=== PATIENT | female | born 1970 | race Two or more races ===

== ENCOUNTER 2022-03-27 11:45 | Inpatient (IN) | payer MEDICAID ==
[~2022-03-27] VITALS: Ht 162.6 cm; Wt 101.3 kg
[2022-03-27 12:25] LABS: Basophils # (auto) 0.1 10 ^3/uL (0-0.2); Basophils % (auto) 0.6 % (0.0-2.0); Eosinophils # (auto) 0.1 10 ^3/uL (0-0.8); Eosinophils % (auto) 1.2 % (0.0-7.0); Hematocrit 43.9 % (36.0-46.0); Hemoglobin 14.2 g/dL (12.2-16.2); Lymphocytes # (auto) 1.1 10 ^3/uL (0.4-5.4); Lymphocytes % (auto) 11.7 % (10.0-50.0); Mean Corpuscular Hgb Conc. 32.4 g/dL (32.0-36.0); Mean Corpuscular Volume 83.4 fL (80.0-100.0); Monocytes # (auto) 0.8 10 ^3/uL (0-1.3); Monocytes % (auto) 8.9 % (0.0-12.0); Neutrophils # (auto) 7.1 10 ^3/uL (1.6-8.6); Neutrophils % (auto) 77.6 % (37.0-80.0); Red Blood Cells 5.26 10^6/uL (4.0-5.20); Red Cell Distribution Width 13.9 % (11.8-14.3); White Blood Cell 9.1 10^3/uL (4.4-10.8)
[2022-03-27 12:48] LABS: Albumin 3.6 g/dL (3.4-5.0); Calcium 8.4 mg/dL (8.5-10.1); Potassium 3.6 mmol/L (3.5-5.1)
[2022-03-27 12:51] LABS: BUN/Creatinine Ratio 14.3; Bilirubin, Total 0.4 mg/dL (0.2-1.0)
[2022-03-27] MEDS ORDERED: IPRATROPIUM BROM 0.5 MG/2.5ML INH SOL HHN ONE (14:00)
[2022-03-27] MEDS ORDERED: ALBUTEROL SULF 2.5 MG/0.5ML(0.5%) NEB SOLN HHN ONE (14:00)
[2022-03-27] MEDS ORDERED: methylPREDNISolone SOD SUCC 125 MG/2 ML VL IM ONE (14:00)
[2022-03-27] MEDS ORDERED: ONDANSETRON HCL 4 MG/2 ML VIAL IV PRN (18:45)
[2022-03-27] MEDS: SODIUM CHLORIDE 0.9% 1,000 ML IV SCH (18:45)
[2022-03-27] MEDS ORDERED: DEXTROSE (50%) 50ML SYRG IV PRN (18:45)
[2022-03-27] MEDS: IPRATROPIUM BROM 0.5 MG/2.5ML INH SOL NEB PRN (20:58)
[2022-03-27] MEDS: ALBUTEROL SULF 2.5 MG/0.5ML(0.5%) NEB SOLN NEB PRN (20:58)
[2022-03-27 22:00] VITALS: BP 132/60
[2022-03-27] MEDS: OSELTAMIVIR 75 MG CAP PO SCH (22:00)
[2022-03-27 23:01] VITALS: BP 117/56
[2022-03-27 23:02] VITALS: BP 117/56
[2022-03-27] MEDS: methylPREDNISolone SOD SUCC 125 MG/2 ML VL IV SCH (23:04)
[2022-03-27] MEDS: ENOXAPARIN SOD 100 MG/1 ML SYRINGE SC SCH (23:05)
[2022-03-27] MEDS: ACCU-CHEK COMFORT CURVE STRIP VI SCH (23:05)
[2022-03-27] MEDS: InsuLIN REG 1unit/0.01ml Soln (100units/ml) SC SCH (23:34)
[2022-03-28] MEDS ORDERED: SEMA4INJ SC (02:09)
[2022-03-28] MEDS ORDERED: LOS25T PO (02:09)
[2022-03-28] MEDS ORDERED: MAGN241.6 PO (02:09)
[2022-03-28 05:00] VITALS: BP 126/72
[2022-03-28] MEDS: methylPREDNISolone SOD SUCC 125 MG/2 ML VL IV SCH ×3 (05:25→23:35)
[2022-03-28 05:47] LABS: Potassium 4.2 mmol/L (3.5-5.1)
[2022-03-28 05:53] LABS: Albumin 3.1 g/dL (3.4-5.0); BUN/Creatinine Ratio 18.9; Bilirubin, Total 0.2 mg/dL (0.2-1.0); Calcium 8.8 mg/dL (8.5-10.1); Total Protein 6.6 g/dL (6.4-8.2)
[2022-03-28] MEDS ORDERED: LEV150T PO (06:08)
[2022-03-28 06:17] LABS: Basophils # (auto) 0 10 ^3/uL (0-0.2); Basophils % (auto) 0.1 % (0.0-2.0); Eosinophils # (auto) 0 10 ^3/uL (0-0.8); Hematocrit 41.6 % (36.0-46.0); Lymphocytes # (auto) 0.7 10 ^3/uL (0.4-5.4); Lymphocytes % (auto) 9.5 % (10.0-50.0); Mean Corpuscular Hemoglobin 27.8 pg (28.0-32.0); Mean Corpuscular Hgb Conc. 33.7 g/dL (32.0-36.0); Mean Corpuscular Volume 82.6 fL (80.0-100.0); Monocytes # (auto) 0.3 10 ^3/uL (0-1.3); Monocytes % (auto) 3.5 % (0.0-12.0); Neutrophils # (auto) 6.7 10 ^3/uL (1.6-8.6); Neutrophils % (auto) 86.9 % (37.0-80.0); Red Blood Cells 5.03 10^6/uL (4.0-5.20); Red Cell Distribution Width 14.2 % (11.8-14.3); White Blood Cell 7.7 10^3/uL (4.4-10.8)
[2022-03-28] MEDS: ACCU-CHEK COMFORT CURVE STRIP VI SCH ×4 (06:28→22:00)
[2022-03-28] MEDS: SODIUM CHLORIDE 0.9% 1,000 ML IV SCH ×3 (06:29→19:45)
[2022-03-28] MEDS: InsuLIN REG 1unit/0.01ml Soln (100units/ml) SC SCH ×4 (06:32→22:00)
[2022-03-28] MEDS: MORPHINE SULFATE INJ 2 MG/ml SYRG IV PRN ×2 (07:23→13:12)
[2022-03-28 08:00] VITALS: BP 131/71
[2022-03-28 09:00] VITALS: BP 131/71
[2022-03-28] MEDS: OSELTAMIVIR 75 MG CAP PO SCH ×2 (10:00→22:00)
[2022-03-28] MEDS ORDERED: ENOXAPARIN SOD 40 MG/0.4 ML SYRINGE SC SCH (10:00)
[2022-03-28] MEDS: ENOXAPARIN SOD 100 MG/1 ML SYRINGE SC SCH ×2 (10:38→23:35)
[2022-03-28] MEDS: guaiFENesin-CODEINE Liq 5 ML UD PO PRN ×4 (10:38→23:36)
[2022-03-28] MEDS: DOCUSATE SOD 100 MG CAP PO PRN ×2 (10:52→21:17)
[2022-03-28 13:00] VITALS: BP 124/72
[2022-03-28 17:00] VITALS: BP 133/74
[2022-03-28] MEDS: IPRATROPIUM BROM 0.5 MG/2.5ML INH SOL NEB PRN (19:27)
[2022-03-28] MEDS: ALBUTEROL SULF 2.5 MG/0.5ML(0.5%) NEB SOLN NEB PRN (19:27)
[2022-03-28 21:24] VITALS: BP 102/57
[2022-03-29] MEDS: SODIUM CHLORIDE 0.9% 1,000 ML IV SCH ×3 (04:05→20:45)
[2022-03-29 05:00] VITALS: BP 104/50
[2022-03-29] MEDS: cefTRIAXone 1GM/50ML D5W 50 ML IV SCH (05:42)
[2022-03-29] MEDS: AZITHROMYCIN 250 MG TAB PO SCH (05:42)
[2022-03-29] MEDS: InsuLIN REG 1unit/0.01ml Soln (100units/ml) SC SCH ×4 (05:44→22:20)
[2022-03-29] MEDS: methylPREDNISolone SOD SUCC 125 MG/2 ML VL IV SCH ×3 (05:44→22:08)
[2022-03-29] MEDS: ACCU-CHEK COMFORT CURVE STRIP VI SCH ×4 (05:45→22:23)
[2022-03-29 08:00] VITALS: BP 119/61
[2022-03-29 09:00] VITALS: BP 119/61
[2022-03-29] MEDS: ENOXAPARIN SOD 100 MG/1 ML SYRINGE SC SCH ×2 (10:00→22:00)
[2022-03-29] MEDS: OSELTAMIVIR 75 MG CAP PO SCH ×2 (10:00→22:00)
[2022-03-29] MEDS: MORPHINE SULFATE INJ 2 MG/ml SYRG IV PRN (12:30)
[2022-03-29] MEDS: guaiFENesin-CODEINE Liq 5 ML UD PO PRN ×3 (12:36→22:00)
[2022-03-29] MEDS: DOCUSATE SOD 100 MG CAP PO PRN (12:36)
[2022-03-29 13:00] VITALS: BP 125/69
[2022-03-29 17:00] VITALS: BP 139/61
[2022-03-29] MEDS: ALBUTEROL SULF 2.5 MG/0.5ML(0.5%) NEB SOLN NEB PRN (18:19)
[2022-03-29] MEDS: IPRATROPIUM BROM 0.5 MG/2.5ML INH SOL NEB PRN (18:19)
[2022-03-29 22:00] VITALS: BP 115/61
[2022-03-30] MEDS: guaiFENesin-CODEINE Liq 5 ML UD PO PRN ×3 (04:17→22:31)
[2022-03-30] MEDS: ALBUTEROL SULF 2.5 MG/0.5ML(0.5%) NEB SOLN NEB PRN (04:34)
[2022-03-30] MEDS: IPRATROPIUM BROM 0.5 MG/2.5ML INH SOL NEB PRN (04:34)
[2022-03-30 05:00] VITALS: BP 104/54
[2022-03-30] MEDS: SODIUM CHLORIDE 0.9% 1,000 ML IV SCH ×2 (05:05→13:17)
[2022-03-30] MEDS: ALBUTEROL SULF 2.5 MG/0.5ML(0.5%) NEB SOLN NEB SCH ×3 (06:03→17:52)
[2022-03-30] MEDS: IPRATROPIUM BROM 0.5 MG/2.5ML INH SOL NEB SCH ×3 (06:04→17:52)
[2022-03-30] MEDS: ACCU-CHEK COMFORT CURVE STRIP VI SCH ×4 (06:33→22:20)
[2022-03-30] MEDS: methylPREDNISolone SOD SUCC 125 MG/2 ML VL IV SCH ×2 (06:33→13:05)
[2022-03-30] MEDS: InsuLIN REG 1unit/0.01ml Soln (100units/ml) SC SCH ×4 (06:37→22:27)
[2022-03-30] MEDS: DOCUSATE SOD 100 MG CAP PO PRN (09:46)
[2022-03-30] MEDS: cefTRIAXone 1GM/50ML D5W 50 ML IV SCH (09:46)
[2022-03-30] MEDS: AZITHROMYCIN 250 MG TAB PO SCH (09:47)
[2022-03-30] MEDS: ENOXAPARIN SOD 100 MG/1 ML SYRINGE SC SCH (10:00)
[2022-03-30] MEDS: OSELTAMIVIR 75 MG CAP PO SCH ×2 (10:00→22:00)
[2022-03-30 13:00] VITALS: BP 141/53
[2022-03-30 14:58] VITALS: BP 141/53
[2022-03-30 16:50] VITALS: BP 142/84
[2022-03-30 22:00] VITALS: BP 142/60
[2022-03-31] MEDS: guaiFENesin-CODEINE Liq 5 ML UD PO PRN ×2 (04:13→21:33)
[2022-03-31] MEDS: DOCUSATE SOD 100 MG CAP PO PRN ×2 (04:13→21:32)
[2022-03-31 05:00] VITALS: BP 135/77
[2022-03-31] MEDS: InsuLIN REG 1unit/0.01ml Soln (100units/ml) SC SCH ×4 (06:24→21:34)
[2022-03-31] MEDS: ACCU-CHEK COMFORT CURVE STRIP VI SCH ×4 (06:24→21:33)
[2022-03-31] MEDS: ALBUTEROL SULF 2.5 MG/0.5ML(0.5%) NEB SOLN NEB SCH ×3 (06:29→19:17)
[2022-03-31] MEDS: IPRATROPIUM BROM 0.5 MG/2.5ML INH SOL NEB SCH ×3 (06:29→19:17)
[2022-03-31 09:00] VITALS: BP 135/73
[2022-03-31] MEDS: AZITHROMYCIN 250 MG TAB PO SCH (09:22)
[2022-03-31] MEDS: cefTRIAXone 1GM/50ML D5W 50 ML IV SCH (09:23)
[2022-03-31] MEDS: predniSONE 20 MG TAB PO SCH (09:23)
[2022-03-31] MEDS: MORPHINE SULFATE INJ 2 MG/ml SYRG IV PRN (09:43)
[2022-03-31] MEDS: ENOXAPARIN SOD 100 MG/1 ML SYRINGE SC SCH (10:00)
[2022-03-31] MEDS: OSELTAMIVIR 75 MG CAP PO SCH ×2 (10:00→21:37)
[2022-03-31 12:56] VITALS: BP 135/71
[2022-03-31 12:58] VITALS: BP_SYST 135; BP_SYST 153; BP_DIAS 71; BP_DIAS 72
[2022-03-31 17:00] VITALS: BP 114/58
[2022-03-31 22:00] VITALS: BP 109/45
[2022-04-01 05:00] VITALS: BP 117/56
[2022-04-01] MEDS: IPRATROPIUM BROM 0.5 MG/2.5ML INH SOL NEB SCH ×3 (06:00→19:13)
[2022-04-01] MEDS: ALBUTEROL SULF 2.5 MG/0.5ML(0.5%) NEB SOLN NEB SCH ×3 (06:00→19:13)
[2022-04-01 06:28] LABS: Basophils # (auto) 0 10 ^3/uL (0-0.2); Basophils % (auto) 0.1 % (0.0-2.0); Mean Corpuscular Hemoglobin 26.9 pg (28.0-32.0); Monocytes # (auto) 1.1 10 ^3/uL (0-1.3); Neutrophils # (auto) 6.9 10 ^3/uL (1.6-8.6); Nucleated Red Blood Cells % 0.1 %
[2022-04-01 06:31] LABS: Eosinophils # (auto) 0 10 ^3/uL (0-0.8); Eosinophils % (auto) 0.2 % (0.0-7.0); Lymphocytes # (auto) 3.6 10 ^3/uL (0.4-5.4); Lymphocytes % (auto) 31.2 % (10.0-50.0); Mean Corpuscular Hgb Conc. 32.6 g/dL (32.0-36.0); Mean Corpuscular Volume 82.5 fL (80.0-100.0); Monocytes % (auto) 9.4 % (0.0-12.0); Neutrophils % (auto) 59.1 % (37.0-80.0); Red Blood Cells 5.21 10^6/uL (4.0-5.20); White Blood Cell 11.7 10^3/uL (4.4-10.8)
[2022-04-01] MEDS: ACCU-CHEK COMFORT CURVE STRIP VI SCH ×4 (06:51→23:02)
[2022-04-01] MEDS: guaiFENesin-CODEINE Liq 5 ML UD PO PRN ×2 (06:51→19:54)
[2022-04-01] MEDS: InsuLIN REG 1unit/0.01ml Soln (100units/ml) SC SCH ×4 (06:51→23:05)
[2022-04-01 06:55] LABS: Calcium 8.4 mg/dL (8.5-10.1); Potassium 3.6 mmol/L (3.5-5.1)
[2022-04-01 09:00] VITALS: BP 106/41
[2022-04-01] MEDS: OSELTAMIVIR 75 MG CAP PO SCH (09:01)
[2022-04-01] MEDS: ENOXAPARIN SOD 100 MG/1 ML SYRINGE SC SCH (09:02)
[2022-04-01] MEDS: predniSONE 20 MG TAB PO SCH (09:04)
[2022-04-01] MEDS: cefTRIAXone 1GM/50ML D5W 50 ML IV SCH (09:04)
[2022-04-01] MEDS: AZITHROMYCIN 250 MG TAB PO SCH (09:05)
[2022-04-01 13:00] VITALS: BP 123/49
[2022-04-01 17:00] VITALS: BP 94/52
[2022-04-01] MEDS: DOCUSATE SOD 100 MG CAP PO PRN (19:54)
[2022-04-01 22:00] VITALS: BP 107/56
[2022-04-02 05:00] VITALS: BP 123/60
[2022-04-02] MEDS: InsuLIN REG 1unit/0.01ml Soln (100units/ml) SC SCH ×4 (06:41→21:55)
[2022-04-02] MEDS: IPRATROPIUM BROM 0.5 MG/2.5ML INH SOL NEB SCH (06:41)
[2022-04-02] MEDS: guaiFENesin-CODEINE Liq 5 ML UD PO PRN ×2 (06:41→21:51)
[2022-04-02] MEDS: ACCU-CHEK COMFORT CURVE STRIP VI SCH ×4 (06:41→21:54)
[2022-04-02] MEDS: ALBUTEROL SULF 2.5 MG/0.5ML(0.5%) NEB SOLN NEB SCH (06:41)
[2022-04-02 07:35] VITALS: BP 123/60
[2022-04-02 08:00] VITALS: BP 121/65
[2022-04-02] MEDS ORDERED: IPRATROPIUM BROM 0.5 MG/2.5ML INH SOL NEB PRN (10:15)
[2022-04-02] MEDS ORDERED: ALBUTEROL SULF 2.5 MG/0.5ML(0.5%) NEB SOLN NEB PRN (10:15)
[2022-04-02] MEDS: ENOXAPARIN SOD 40 MG/0.4 ML SYRINGE SC SCH (10:49)
[2022-04-02 12:00] VITALS: BP 106/62
[2022-04-02] MEDS ORDERED: IOHEXOL 350 MG/ML 100ML IJ ONE (13:53)
[2022-04-02 16:00] VITALS: BP 112/60
[2022-04-02 22:00] VITALS: BP 104/42
[2022-04-03 05:00] VITALS: BP 94/60
[2022-04-03] MEDS: InsuLIN REG 1unit/0.01ml Soln (100units/ml) SC SCH ×2 (07:00→11:23)
[2022-04-03] MEDS: ACCU-CHEK COMFORT CURVE STRIP VI SCH ×2 (08:01→11:23)
[2022-04-03 09:00] VITALS: BP 113/66
[2022-04-03] MEDS: ENOXAPARIN SOD 40 MG/0.4 ML SYRINGE SC SCH (09:53)
[2022-04-03 11:03] LABS: Basophils # (auto) 0.1 10 ^3/uL (0-0.2); Basophils % (auto) 0.8 % (0.0-2.0); Eosinophils # (auto) 0.4 10 ^3/uL (0-0.8); Eosinophils % (auto) 3.9 % (0.0-7.0); Hematocrit 43.4 % (36.0-46.0); Lymphocytes # (auto) 3.8 10 ^3/uL (0.4-5.4); Lymphocytes % (auto) 36.7 % (10.0-50.0); Mean Corpuscular Hemoglobin 26.6 pg (28.0-32.0); Mean Corpuscular Hgb Conc. 32.3 g/dL (32.0-36.0); Mean Corpuscular Volume 82.5 fL (80.0-100.0); Monocytes # (auto) 0.9 10 ^3/uL (0-1.3); Monocytes % (auto) 8.8 % (0.0-12.0); Neutrophils # (auto) 5.1 10 ^3/uL (1.6-8.6); Neutrophils % (auto) 49.8 % (37.0-80.0); Nucleated Red Blood Cells % 0.1 %; Red Blood Cells 5.26 10^6/uL (4.0-5.20); Red Cell Distribution Width 13.7 % (11.8-14.3); White Blood Cell 10.3 10^3/uL (4.4-10.8)
[2022-04-03 11:15] LABS: Potassium 4.3 mmol/L (3.5-5.1)
[2022-04-03 11:21] LABS: Albumin 2.8 g/dL (3.4-5.0); BUN/Creatinine Ratio 31.8; Bilirubin, Total 0.2 mg/dL (0.2-1.0); Calcium 8.5 mg/dL (8.5-10.1); Total Protein 6.5 g/dL (6.4-8.2)
== END 2022-04-03 15:13 | disposition home or self-care (01) | DRG 141 ==
LOC: ER 11:45 → WEST WING 18:36
PROVIDERS: ADMIT Nurse Practitioner Family; ATTEND Student in an Organized Health Care Education/Training Program
DX: J45.901 Unspecified asthma with (acute) exacerbation (principal); J96.01 Acute respiratory failure with hypoxia; J11.00 Influenza due to unidentified influenza virus with unspecified type of pneumonia; E78.5 Hyperlipidemia, unspecified; I10 Essential (primary) hypertension; E03.9 Hypothyroidism, unspecified; Z20.822 Contact with and (suspected) exposure to COVID-19; J98.11 Atelectasis; Y92.89 Other specified places as the place of occurrence of the external cause; Z82.49 Family history of ischemic heart disease and other diseases of the circulatory system; Z83.3 Family history of diabetes mellitus; Z90.710 Acquired absence of both cervix and uterus; Z88.8 Allergy status to other drugs, medicaments and biological substances; E11.9 Type 2 diabetes mellitus without complications; Z79.84 Long term (current) use of oral hypoglycemic drugs
CPT/HCPCS: 36415; 36600; 71046; 71275; 80048; 80053; 82805; 82962; 83036; 83605; 83880; 84484; 85025; 85379; 87040; 87426; 87804; 93005; 94640; 96372; 96374; G0378; J0696; J1815; J2405